=== PATIENT | male | born 1975 | race Caucasian/White ===

== ENCOUNTER → 2016-05-31 | Outpatient (CLI) | payer BC ==
[~2016-05-31] MED LIST: CIPRO 500MG TA500 MG PO; NO HOME MEDICATIONS
== END ==
LOC: BHSO 08:02
DX: F41.1 Generalized anxiety disorder (principal)

== ENCOUNTER → 2016-11-04 | Outpatient (CLI) | payer BC | LOC: BHSO 07:47 | DX: F41.1 Generalized anxiety disorder (principal) ==

== ENCOUNTER → 2017-06-02 | Outpatient (CLI) | payer BC | LOC: BHSO 08:02 | DX: F41.1 Generalized anxiety disorder (principal) | CPT/HCPCS: G0463 ==

== ENCOUNTER → 2017-10-20 | Outpatient (CLI) | payer BC | LOC: BHSO 08:14 | DX: F41.1 Generalized anxiety disorder (principal) | CPT/HCPCS: G0463 ==

== ENCOUNTER → 2017-11-17 | Outpatient (CLI) | payer BC | LOC: BHSO 07:53 | DX: F41.1 Generalized anxiety disorder (principal) | CPT/HCPCS: G0463 ==

== ENCOUNTER → 2018-03-09 | Outpatient (CLI) | payer BC | LOC: BHSO 07:54 | DX: F41.1 Generalized anxiety disorder (principal) | CPT/HCPCS: G0463 ==

== ENCOUNTER → 2018-09-04 | Outpatient (CLI) | payer BC | LOC: BHSO 07:54 | DX: F33.42 Major depressive disorder, recurrent, in full remission (principal) | CPT/HCPCS: G0463 ==

== ENCOUNTER → 2019-08-29 | Outpatient (CLI) | payer BC ==
[~2019-08-29] MED LIST changes: +ASPIRIN 81M81 MG/TA2 PO; +DESYREL 50MG50 MG PO; +PRILOSEC10 MG PO; +PROZAC40 MG PO; +TOPAMAX 25MG25 M1 PO; +ZITHROMAX500 M2 PO; +ZYBAN150 M1
== END ==
LOC: BHSO 07:58
DX: F33.42 Major depressive disorder, recurrent, in full remission (principal)
CPT/HCPCS: G0463

== ENCOUNTER → 2019-11-29 | Outpatient (CLI) | payer BC | LOC: BHSO 08:08 | DX: F33.42 Major depressive disorder, recurrent, in full remission (principal) | CPT/HCPCS: G0463 ==

== ENCOUNTER 2023-06-13 08:35 | Emergency (ER) | payer BC ==
[~2023-06-13] VITALS: Ht 185.4 cm; Wt 122.7 kg
[~2023-06-13 08:35] MED LIST changes: +LIPITOR20 MG PO; +PRILOSEC 20MG20 MG PO; +VITAMIN D 50,1.25 MG PO; +WELLBUTRIN XL150 MG PO
[2023-06-13 08:39] VITALS: TEMP 98.2
[2023-06-13] MEDS ORDERED: NS 1,000 ML IV ONE (08:45)
[2023-06-13 09:14] LABS: BASO # 0.1 K/mm3 (0.0-0.2); BASO % 0.7 % (0.0-2.0); EOS # 0.2 K/mm3 (0.0-0.7); EOS % 3.1 % (0.0-4.0); GRAN # 4.2 K/mm3 (1.4-6.5); GRAN % 58.2 % (42.2-75.2); HEMATOCRIT 40.7 % (42.0-52.0); HEMOGLOBIN 14.6 g/dl (13.5-18.0); LYMPH % 28.2 % (20.0-51.0); MEAN CELL VOLUME 86 fl (80.0-100.0); MEAN CORPUSCULAR HEMOGLOBIN 31 pg (27-31); MEAN CORPUSCULAR HGB CONC 36 g/dl (33.0-37.0); MEAN PLATELET VOLUME 9.7 fl (7.4-10.4); MONO # 0.7 K/mm3 (0.1-0.6); MONO % 9.2 % (1.7-9.3); PLATELET COUNT 269 K/mm3 (130-400); RED BLOOD COUNT 4.76 M/mm3 (4.20-5.60); REDCELL DISTRIBUTION WIDTH-CV 12.9 % (11.5-14.5)
[2023-06-13 09:36] LABS: ALBUMIN 4.1 g/dL (3.5-5.0); BILIRUBIN,TOTAL 0.3 mg/dL (0.2-1.2); C-REACTIVE PROTEIN 0.6 mg/dL (0.00-0.50); CALCIUM 9.5 mg/dL (8.4-10.2); CREATININE, serum 0.93 mg/dL (0.72-1.25); POTASSIUM 3.6 mEq/L (3.5-4.5); TOTAL PROTEIN 7.8 g/dl (6.2-8.1)
[2023-06-13] MEDS ORDERED: Iohexol 300 - 100 ML VIAL IV ONE (10:00)
[2023-06-13] MEDS ORDERED: NS 100 ML IV SCH (10:26)
[2023-06-13 10:27] LABS: COLLECTION METHOD CLEAN CATCH
[2023-06-13 10:48] LABS: URINE APPEARANCE CLEAR (CLEAR/HAZY); URINE BLOOD NEGATIVE (NEGATIVE); URINE COLOR YELLOW (YELLOW); URINE GLUCOSE NEGATIVE (NEGATIVE); URINE KETONE NEGATIVE (NEGATIVE); URINE NITRATE NEGATIVE (NEGATIVE); URINE PROTEIN(semi-quant) NEGATIVE (NEGATIVE); URINE UROBILINOGEN 0.2 E.U/dL (0.2-1.0)
[2023-06-13] MEDS ORDERED: Ketorolac 30 MG/ML VIAL IV ONE (11:00)
[2023-06-13 11:40] VITALS: BP 145/93; PULSE 79
== END 2023-06-13 11:48 | disposition home or self-care (01) ==
LOC: COL.ER 08:35
PROVIDERS: Emergency Medicine
DX: I88.0 Nonspecific mesenteric lymphadenitis (principal); Z87.442 Personal history of urinary calculi
CPT/HCPCS: J1885; J7030; Q9967